=== PATIENT | male | born 1965 | race Two or more races ===

== ENCOUNTER 2019-10-23 20:23 | Inpatient (IN) | payer BC ==
[~2019-10-23] VITALS: Ht 170.2 cm; Wt 85.2 kg
[2019-10-23] MEDS ORDERED: MAALOX/HYOSCYAMINE/LIDOCAINE 45 ML BTL ONE (20:49)
--- NOTE | 2019-10-23 20:53 | NUR ---
PT TO ED WITH C/O EPIGASTRIC PAIN FOR 1 DAY AFTER EATING. PT HAS BEEN UNABLE TO EAT WITHOUT PAIN SINCE THEN. PT DENIES CP, N/V/D, DENIES ANY OTHER C/O AT THIS TIME. PT PLACED ON ALL MONTIORING, CALL LIGHT WITHIN REACH, ALL SAFETY MEASURES IN PLACE. PT MEDICATED PER SEP.
[2019-10-23] MEDS ORDERED: MAALOX/HYOSCYAMINE/LIDOCAINE 45 ML BTL PO ONE (21:00)
[2019-10-23] MEDS ORDERED: ONDANSETRON ODT 8 MG ONE (21:08)
--- NOTE | 2019-10-23 21:15 | NUR ---
PT TO IMAGING AT THIS TIME. LABS DRAWN, UA COLLECTED.
[2019-10-23 21:22] LABS: BASOPHILS # (AUTO) 0.05 x10^3/uL (0-0.1); BASOPHILS % (AUTO) 0 % (0-1); EOSINOPHILS # (AUTO) 0.08 x10^3/uL (0-0.4); EOSINOPHILS % (AUTO) 1 % (1-7); LYMPHOCYTES # (AUTO) 2.43 x10^3/uL (1-3.4); LYMPHOCYTES % (AUTO) 16 % (22-44); MD NO; MEAN CORPUSCULAR HGB CONC 32.8 g/dL (33.2-36.2); MEAN CORPUSCULAR VOLUME 91.4 fL (81-97); MEAN PLATELET VOLUME 9.1 fL (7.4-10.4); MICROSCOPIC AUTO; MONOCYTES # (AUTO) 1.08 x10^3/uL (0.2-0.8); MONOCYTES % (AUTO) 7 % (2-9); NEUTROPHILS # (AUTO) 11.45 x10^3/uL (1.8-6.8); NEUTROPHILS % (AUTO) 76 % (42-75); PLATELET COUNT 302 x10^3/uL (130-400); RED BLOOD COUNT 5.27 x10^6/uL (4.38-5.82); RED CELL DISTRIBUTION WIDTH 15.1 % (9.4-14.8)
[2019-10-23 21:24] LABS: CULTURE INDICATED? NO
--- NOTE | 2019-10-23 21:25 | NUR ---
PT REFUSING IV, OR ANY PAIN MEDICATIONS AT THIS TIME. REFUSING ZOFRAN WELL.
[2019-10-23 21:28] LABS: ALANINE AMINOTRANSFERASE 35 U/L (12-78); ALBUMIN 3.8 g/dL (3.4-5.0); ANION GAP 8 mmol/L (5-15); CALCIUM 9.8 mg/dL (8.5-10.1); CHLORIDE 106 mmol/L (98-107); CREATININE 1.06 mg/dL (0.7-1.3)
[2019-10-23] MEDS ORDERED: ONDANSETRON ODT 8 MG PO ONE (21:30)
[2019-10-23 21:32] LABS: ALKALINE PHOSPHATASE 83 U/L (45-117); BILIRUBIN,TOTAL 0.3 mg/dL (0.2-1.0); TOTAL PROTEIN 8.4 g/dL (6.4-8.2)
[2019-10-23] MEDS ORDERED: ASPIRIN 81 MG TABLET EC ONE (21:40)
[2019-10-23] MEDS ORDERED: HEPARIN 5,000 UNITS/ML, 1ML ONE (21:40)
[2019-10-23] MEDS ORDERED: HEPARIN 25,000 UNITS/250ML PMX 250 ML ONE (21:40)
[2019-10-23] MEDS ORDERED: NITROGLYCERIN/D5W PMX 250 ML IV PRN (21:43)
[2019-10-23] MEDS ORDERED: HEPARIN 5,000 UNITS/ML, 1ML IV PRN (22:00)
[2019-10-23] MEDS ORDERED: NITROGLYCERIN OINT 2%, 1GM TP ONE (22:00)
[2019-10-23] MEDS ORDERED: HEPARIN 25,000 UNITS/250ML PMX 250 ML IV PRN (22:00)
[2019-10-23] MEDS ORDERED: ASPIRIN 81 MG TABLET CHEW PO ONE (22:00)
[2019-10-23] MEDS ORDERED: HEPARIN 5,000 UNITS/ML, 1ML IV ONE (22:00)
[2019-10-23] MEDS ORDERED: MORPHINE SULFATE 4 MG/ML, 1ML IVPush PRN (22:00)
[2019-10-23] MEDS ORDERED: SODIUM CHLORIDE FLUSH 10ML SYR IVF ONE (22:00)
[2019-10-23 22:15] LABS: INTERNATIONAL NORMALIZED RATIO 1.18 (0.93-1.1); PROTHROMBIN TIME 12.5 Seconds (9.6-11.5)
[2019-10-23] MEDS ORDERED: OMNIPAQUE 350 MG/ML, 100ML BOTTLE ONE (22:42)
--- NOTE | 2019-10-23 22:43 | NUR ---
PT REPORTS 4/10 PAIN, REFUSING PAIN MEDICATIONS AT THIS TIME. PT UPDATED ON POC. CALL LIGHT WITHIN REACH, MONITORING IN PLACE.
[2019-10-23] MEDS ORDERED: ACETAMINOPHEN 325 MG TABLET PO PRN (23:00)
[2019-10-23] MEDS ORDERED: ONDANSETRON 2MG/ML, 2ML IVPush PRN (23:00)
[2019-10-23] MEDS ORDERED: NITROGLYCERIN 0.4 MG BOTTLE (25 TABS) SL PRN (23:00)
[2019-10-23] MEDS ORDERED: morphine SULFATE 10 MG/ML, 1ML IVPush PRN (23:00)
[2019-10-24] MEDS ORDERED: NITROGLYCERIN/D5W PMX 0 ML ONE (00:47)
[2019-10-24 01:41] VITALS: BP 114/62
[2019-10-24 04:54] LABS: BASOPHILS # (AUTO) 0.06 x10^3/uL (0-0.1); BASOPHILS % (AUTO) 0 % (0-1); EOSINOPHILS # (AUTO) 0.06 x10^3/uL (0-0.4); EOSINOPHILS % (AUTO) 1 % (1-7); LYMPHOCYTES # (AUTO) 2.54 x10^3/uL (1-3.4); LYMPHOCYTES % (AUTO) 19 % (22-44); MD NO; MEAN CORPUSCULAR HEMOGLOBIN 30.2 pg (27.5-34.5); MEAN CORPUSCULAR HGB CONC 32.4 g/dL (33.2-36.2); MEAN PLATELET VOLUME 9.5 fL (7.4-10.4); MONOCYTES # (AUTO) 0.81 x10^3/uL (0.2-0.8); MONOCYTES % (AUTO) 6 % (2-9); NEUTROPHILS # (AUTO) 10.22 x10^3/uL (1.8-6.8); NEUTROPHILS % (AUTO) 75 % (42-75); PLATELET COUNT 265 x10^3/uL (130-400); RED BLOOD COUNT 5.33 x10^6/uL (4.38-5.82); RED CELL DISTRIBUTION WIDTH 15.3 % (9.4-14.8)
[2019-10-24 05:02] LABS: ANION GAP 8 mmol/L (5-15); CALCIUM 9.8 mg/dL (8.5-10.1); CHLORIDE 108 mmol/L (98-107)
[2019-10-24] MEDS ORDERED: ASPIRIN 325 MG TABLET EC PO SCH (06:00)
[2019-10-24 07:38] VITALS: BP 113/74
[2019-10-24 09:49] LABS: CHOL/HDL RATIO 3.7; LDL/HDL RATIO 2.3 (0.5-3.0)
[2019-10-24] MEDS: PANTOPRAZOLE 40 MG IV IVPush SCH (10:05)
[2019-10-24] MEDS: LISINOPRIL 5 MG TABLET PO SCH (10:10)
[2019-10-24] MEDS: SODIUM CHLORIDE 0.9% 1,000 ML IV SCH ×3 (11:23→23:43)
[2019-10-24] MEDS ORDERED: FENTANYL PF 100 MCG/2ML ONE ×2 (12:42→13:18)
[2019-10-24] MEDS ORDERED: MIDAZOLAM 1 MG/ML, 5ML ONE ×2 (12:42→13:17)
[2019-10-24] MEDS ORDERED: TICAGRELOR 90 MG TABLET ONE (12:42)
[2019-10-24] MEDS ORDERED: BIVALIRUDIN 250 MG ONE (12:42)
[2019-10-24] MEDS ORDERED: LIDOCAINE-MPF 1%, 5ML ONE (12:42)
[2019-10-24] MEDS ORDERED: VERAPAMIL 2.5 MG/ML, 2ML ONE (12:42)
[2019-10-24] MEDS ORDERED: HEPARIN 1,000 UNITS/ML, 10ML ONE (12:43)
[2019-10-24] MEDS ORDERED: PRASUGREL 10 MG TABLET ONE (12:45)
[2019-10-24] MEDS ORDERED: LIDOCAINE 2%, 20ML ONE (13:16)
[2019-10-24 15:53] VITALS: BP 105/67
[2019-10-24] MEDS: METOPROLOL TARTRATE 25 MG TAB PO SCH (18:27)
[2019-10-24] MEDS ORDERED: ATORVASTATIN 80 MG TABLET PO SCH (21:00)
[2019-10-24 21:01] VITALS: BP 92/60
[2019-10-25 03:16] VITALS: BP 95/62
[2019-10-25 04:05] LABS: MEAN CORPUSCULAR HEMOGLOBIN 30.8 pg (27.5-34.5); MEAN CORPUSCULAR HGB CONC 32.8 g/dL (33.2-36.2); MEAN CORPUSCULAR VOLUME 93.8 fL (81-97); MEAN PLATELET VOLUME 8.9 fL (7.4-10.4); PLATELET COUNT 248 x10^3/uL (130-400); RED BLOOD COUNT 5.03 x10^6/uL (4.38-5.82); RED CELL DISTRIBUTION WIDTH 15.6 % (9.4-14.8)
[2019-10-25 04:12] LABS: ANION GAP 5 mmol/L (5-15); CHLORIDE 109 mmol/L (98-107); CREATININE 0.95 mg/dL (0.7-1.3)
[2019-10-25 05:54] LABS: BASOPHILS # (AUTO) 0.08 x10^3/uL (0-0.1); BASOPHILS % (AUTO) 1 % (0-1); EOSINOPHILS # (AUTO) 0.15 x10^3/uL (0-0.4); EOSINOPHILS % (AUTO) 1 % (1-7); LYMPHOCYTES # (AUTO) 2.06 x10^3/uL (1-3.4); LYMPHOCYTES % (AUTO) 13 % (22-44); MD SCAN; MONOCYTES # (AUTO) 1.38 x10^3/uL (0.2-0.8); MONOCYTES % (AUTO) 9 % (2-9); NEUTROPHILS # (AUTO) 12.11 x10^3/uL (1.8-6.8); NEUTROPHILS % (AUTO) 77 % (42-75)
[2019-10-25] MEDS ORDERED: ASPIRIN 81 MG TABLET EC PO SCH (06:00)
[2019-10-25] MEDS: METOPROLOL TARTRATE 25 MG TAB PO SCH (06:30)
[2019-10-25 07:25] VITALS: BP 97/64
[2019-10-25] MEDS: PANTOPRAZOLE 40 MG IV IVPush SCH ×2 (07:30→08:27)
[2019-10-25] MEDS: LISINOPRIL 5 MG TABLET PO SCH (08:27)
[2019-10-25] MEDS ORDERED: CLOPIDOGREL 75 MG TABLET PO SCH (09:00)
[2019-10-25] MEDS: SODIUM CHLORIDE 0.9% 1,000 ML IV SCH (11:00)
[2019-10-25] MEDS ORDERED: NITR0.4T28 SL (12:34)
[2019-10-25] MEDS ORDERED: ASPI81TA45 PO (12:34)
[2019-10-25] MEDS ORDERED: METO25TA35 PO (12:34)
[2019-10-25] MEDS ORDERED: ATOR-2 PO (12:34)
[2019-10-25] MEDS ORDERED: CLOP75TA PO (12:34)
[2019-10-25] MEDS ORDERED: LISI5TAB7 PO (12:34)
== END 2019-10-25 12:41 | disposition left against medical advice (07) | DRG 282 ==
LOC: ED 21:39 → EDIP 22:40 → 5SO 10-24 01:20
PROVIDERS: ADMIT Family Medicine; ATTEND Hospitalist
PROC: 4A023N7 Measurement of Cardiac Sampling and Pressure, Left Heart, Percutaneous Approach (ICD-10-PCS; principal; 2019-10-24)
PROC: B2111ZZ Fluoroscopy of Multiple Coronary Arteries using Low Osmolar Contrast (ICD-10-PCS; 2019-10-24)
PROC: B2151ZZ Fluoroscopy of Left Heart using Low Osmolar Contrast (ICD-10-PCS; 2019-10-24)
DX: I21.4 Non-ST elevation (NSTEMI) myocardial infarction (principal); D72.829 Elevated white blood cell count, unspecified; E78.5 Hyperlipidemia, unspecified; I25.110 Atherosclerotic heart disease of native coronary artery with unstable angina pectoris; R73.01 Impaired fasting glucose; R73.9 Hyperglycemia, unspecified; I25.2 Old myocardial infarction; Z87.891 Personal history of nicotine dependence
CPT/HCPCS: 36415; 74022; 93458; 96374; 99285; J3490; 71275; 74175; 80048; 80053; 80061; 81001; 83036; 83690; 83880; 84484; 85025; 85520; 85610; 85730; 93005; 93306; 93356; 99156; 99157; C1760; C1769; C1894; G0378; J0583; J1644; J2250; J3010; Q9967; C9113; J7030

== ENCOUNTER → 2021-01-09 | Outpatient (CLI) | payer BC ==
[~2021-01-09] MED LIST: ASPI81TA45 PO; ATOR-2 PO; CLOP75TA PO; LISI5TAB7 PO; METO25TA35 PO; NITR0.4T28 SL
== END | disposition home or self-care (01) ==
LOC: CVU 15:41
PROVIDERS: ATTEND Internal Medicine Cardiovascular Disease
DX: I36.1 Nonrheumatic tricuspid (valve) insufficiency (principal); I25.2 Old myocardial infarction; I10 Essential (primary) hypertension; I25.10 Atherosclerotic heart disease of native coronary artery without angina pectoris
CPT/HCPCS: 93306; 93356